=== PATIENT | male | born 1965 | race African-American/Black ===

== ENCOUNTER 2022-05-18 04:52 | Emergency (ER) | payer OTHER ==
[2022-05-18] MEDS ORDERED: Morphine 2 MG/ML SYRINGE IVPUSH ONE (08:58)
[2022-05-18] MEDS ORDERED: Sodium Chloride 0.9% 1,000 ML IV SCH (09:00)
[2022-05-18] MEDS ORDERED: Sodium Chloride 0.9% 10 ML Syringe FLUSH PRN (09:16)
[2022-05-18] MEDS ORDERED: Iopamidol 612 MG/ML 100 ML Bottle IVPUSH ONE (09:16)
[2022-05-18 09:33] LABS: ESTIMATED GFR 71 mL/min (>60)
[2022-05-18] MEDS ORDERED: cefTRIAXone 1 GM in Sodium Chloride 0.9% 100 ML IV ONE (10:47)
[2022-05-18] MEDS ORDERED: Acetaminophen 325 MG Tab PO ONE (13:18)
[2022-05-18] MEDS ORDERED: Azithromycin 250 MG in Sodium Chloride 0.9% 250 ML IV ONE (13:37)
[2022-05-18] MEDS ORDERED: Morphine 4 MG/ML Syringe IVPUSH ONE (13:47)
[2022-05-18 15:37] VITALS: BP 115/73; PULSE 100
== END 2022-05-18 15:05 ==
LOC: JD.ED 04:52
DX: J18.9 Pneumonia, unspecified organism (principal); B20 Human immunodeficiency virus [HIV] disease; I10 Essential (primary) hypertension; Z20.822 Contact with and (suspected) exposure to COVID-19
CPT/HCPCS: 36415; 71045; 71250; 74176; 80053; 81001; 82150; 82550; 83690; 84484; 85007; 85027; 85610; 85730; 86850; 86900; 86901; 87040; 87086; 87635; 93005; 96361; 96365; 96367; 96375; 96376; 99285; A9270; J0456; J0696; J2270; J3490; J7030; J7050; 93010; 99284; U0002